=== PATIENT | female | born 1945 | race Caucasian/White ===

== ENCOUNTER 2024-08-31 09:34 | Inpatient (IN) | payer MEDICARE, BC ==
[~2024-08-31] VITALS: Ht 160 cm; Wt 64.9 kg
[2024-08-31 10:10] VITALS: BP 157/71; TEMP 98.3; O2SAT 98
[2024-08-31] MEDS ORDERED: GABA600T12 PO (10:34)
[2024-08-31] MEDS ORDERED: DONE10TA44 PO (10:34)
[2024-08-31] MEDS ORDERED: OXYC30TA86 PO (10:34)
[2024-08-31] MEDS ORDERED: CYAN-51 PO (10:34)
[2024-08-31] MEDS ORDERED: AMLO2.5T4 PO (10:34)
[2024-08-31] MEDS ORDERED: MEGE20TA3 PO (10:34)
[2024-08-31] MEDS ORDERED: OXYC15TA2 PO (10:34)
[2024-08-31] MEDS ORDERED: ATOR40TA PO (10:34)
[2024-08-31] MEDS ORDERED: NALO12.5 PO (10:35)
[2024-08-31] MEDS ORDERED: clonazePAM 0.5 MG TABLET PO PRN (11:00)
[2024-08-31] MEDS ORDERED: MAGNESIUM HYDROXIDE 30 ML UDC PO PRN (11:00)
[2024-08-31] MEDS ORDERED: MAG HYDROX/AL HYDROX/SIMETH 30 ML UDC PO PRN (11:00)
[2024-08-31] MEDS: BLOOD SUGAR DIAGNOSTIC 1 EACH STRIP IN ONE (11:21)
[2024-08-31] MEDS: ACETAMINOPHEN 325 MG TABLET PO PRN (11:22)
[2024-08-31] MEDS: OLANZAPINE 10 MG VIAL IM ONE (11:38)
[2024-08-31] MEDS: diphenhydrAMINE HCL 50 MG/ML VIAL IM PRN (11:39)
[2024-08-31] MEDS ORDERED: NALOXEGOL OXALATE 12.5 MG PO PRN (13:30)
[2024-08-31] MEDS: ATORVASTATIN 40 MG TABLET PO SCH (13:57)
[2024-08-31] MEDS: oxyCODONE HCL SR 10MG TAB.SR.12H PO SCH (13:57)
[2024-08-31] MEDS ORDERED: OXYBUTYNIN CHLORIDE ER 5 MG TAB PO PRN (14:00)
[2024-08-31] MEDS: AMLODIPINE BESYLATE 2.5 MG TABLET PO SCH (14:31)
[2024-08-31 16:00] VITALS: BP 146/68; TEMP 98.3; O2SAT 96
[2024-08-31] MEDS: oxyCODONE IR immediate release 5 MG TABLET PO PRN (16:44)
[2024-08-31] MEDS: GABAPENTIN 300 MG CAPSULE PO SCH (16:44)
[2024-08-31] MEDS: MEGESTROL ACETATE 40 MG TABLET PO SCH (17:41)
[2024-08-31 20:23] VITALS: BP 154/60; TEMP 98.4; O2SAT 100
[2024-08-31] MEDS: DONEPEZIL 5 MG TABLET PO SCH (22:06)
[2024-09-01 07:56] LABS: ALANINE AMINOTRANSFERASE 30 U/L (12-78); ALBUMIN 3.5 g/dL (3.4-5.0); ALKALINE PHOSPHATASE 47 U/L (46-116); ASPARTATE AMINOTRANSFERASE 20 U/L (15-37); BILIRUBIN,TOTAL 0.9 mg/dL (0.2-1.0); CALCIUM, SERUM 8.2 mg/dL (8.5-10.1); CARBON DIOXIDE 27 mmol/L (21-32); CHLORIDE 110 mmol/L (98-107); CREATININE 0.8 mg/dL (0.6-1.3); GLUCOSE 96 mg/dL (74-106); POTASSIUM 3.5 mmol/L (3.5-5.1); SODIUM SERUM 147 mmol/L (136-145); TOTAL PROTEIN, SERUM 6.3 g/dL (6.4-8.2); UREA NITROGEN, BLOOD 6 mg/dL (7-18)
[2024-09-01 08:00] VITALS: BP 132/69; TEMP 98.1; O2SAT 97
[2024-09-01 08:05] LABS: THYROID STIMULATING HORMONE 2.55 uIU/mL (0.358-3.74)
[2024-09-01] MEDS: AMOX/CLAVULANATE 875 MG TABLET PO SCH (08:42)
[2024-09-01] MEDS: CYANOCOBALAMIN 500 MCG TABLET PO SCH (08:42)
[2024-09-01] MEDS: DOCUSATE SODIUM 100 MG CAPSULE PO SCH (08:42)
[2024-09-01] MEDS: CITALOPRAM HYDROBROMIDE 20 MG TABLET PO SCH (09:26)
[2024-09-01 13:50] LABS: CREATININE 0.9 mg/dL (0.6-1.3)
[2024-09-01 15:46] VITALS: BP 118/66; TEMP 98.6; O2SAT 98
[2024-09-01 20:31] VITALS: BP 127/67; TEMP 98.6; O2SAT 97
[2024-09-01] MEDS: TEMAZEPAM 7.5 MG CAPSULE PO PRN (23:04)
[2024-09-02 08:00] VITALS: BP 142/76; TEMP 98.7; O2SAT 98
[2024-09-02 16:00] VITALS: BP 131/60; TEMP 98.7; O2SAT 98
[2024-09-02 21:08] VITALS: BP 143/67; TEMP 98.6; O2SAT 96
[2024-09-03 08:00] VITALS: BP 100/74; TEMP 97.8; O2SAT 98
[2024-09-03 16:00] VITALS: BP 133/71; TEMP 98.1; O2SAT 97
[2024-09-04 00:33] VITALS: BP 128/60; TEMP 97.8; O2SAT 98
[2024-09-04 08:00] VITALS: BP 108/56; TEMP 97.7; O2SAT 97
[2024-09-04] MEDS ORDERED: AMOX1TAB16 PO (09:31)
[2024-09-04 09:39] VITALS: BP 108/56
== END 2024-09-04 11:00 | disposition home or self-care (01) | DRG 881 ==
LOC: GPS 09:34
PROVIDERS: ADMIT Nurse Practitioner Psychiatric/Mental Health; ATTEND Nurse Practitioner Acute Care
DX: F32.9 Major depressive disorder, single episode, unspecified (principal); C85.9A Non-Hodgkin lymphoma, unspecified, in remission; E87.0 Hyperosmolality and hypernatremia; R45.851 Suicidal ideations; E78.5 Hyperlipidemia, unspecified; I10 Essential (primary) hypertension; F41.9 Anxiety disorder, unspecified; Z90.49 Acquired absence of other specified parts of digestive tract; Z87.19 Personal history of other diseases of the digestive system; N20.0 Calculus of kidney; Z85.3 Personal history of malignant neoplasm of breast; Z90.13 Acquired absence of bilateral breasts and nipples; Z98.1 Arthrodesis status; Z87.828 Personal history of other (healed) physical injury and trauma; Z98.890 Other specified postprocedural states; Z91.51 Personal history of suicidal behavior; Z79.899 Other long term (current) drug therapy; Z98.818 Other dental procedure status
CPT/HCPCS: 36415; 80053-TC; 80061-TC; 82565-TC; 84443-TC; 97110-TC; 97116-TC; 97530-TC; J1200; J3490